=== PATIENT | female | born 1960 | race Two or more races ===

== ENCOUNTER 2018-04-19 21:53 | Emergency (ER) | payer SELFPAY ==
[~2018-04-19] VITALS: Ht 152.4 cm; Wt 71.7 kg
[2018-04-19 22:01] VITALS: BP 127/79
--- NOTE | 2018-04-19 22:24 | Emergency Room Report ---
History of Present Illness General Chief Complaint: Sore Throat Source: Patient Present Illness HPI Patient present with complaints of sore throat ongoing for the past 3 days Denies any chest pain or shortness of breath denies any back or flank pain Patient has increased pain with swallowing 6 out of 10 Also complains of low-grade fevers at home denies any posterior neck pain denies any photophobia Denies any vomiting or diarrhea denies any recent travel Allergies: Coded Allergies: No Known Allergies (Unverified , 04/19/18) Patient History Past Medical History: see triage record Pertinent Family History: none Now: No Reviewed Nursing Documentation: PMH: Agreed; PSxH: Agreed Nursing Documentation-PMH Past Medical History: No History, Except For Hx Hypertension: Yes Hx Diabetes: Yes - Pre-DM Review of Systems All Other Systems: negative except mentioned in HPI Physical Exam Vital Signs Date Time Temp Pulse Resp B/P (MAP) Pulse Ox O2 Delivery O2 Flow Rate FiO2 04/19/18 22:00 100.1 101 16 127/79 93 Room Air 100.0 Sp02 EP Interpretation: reviewed, normal General Appearance: well appearing, no apparent distress Head: normocephalic, atraumatic Eyes: bilateral eye PERRL, bilateral eye EOMI ENT: normal voice, uvula midline, pharyngeal erythema Neck: supple Respiratory: chest non-tender, lungs clear Cardiovascular #1: regular rate, rhythm Gastrointestinal: non tender, soft Musculoskeletal: normal inspection Neurologic: alert, oriented x3 Skin: normal color, no rash Lymphatic: no adenopathy Medical Decision Making Diagnostic Impression: Primary Impression: Pharyngitis ER Course Patient's findings and exam is consistent with pharyngitis likely bacterial Patient is provided with initial antibiotic here Patient does not appear septic or toxic And is otherwise stable for initial conservative outpatient trial Last Vital Signs Date Time Temp Pulse Resp B/P (MAP) Pulse Ox O2 Delivery O2 Flow Rate FiO2 04/19/18 22:01 100.0 101 16 127/79 93 Room Air 100.0 Status: improved Disposition: HOME, SELF-CARE Condition: Improved Scripts Prednisone* (PREDNISONE*) 20 Mg Tablet 20 MG ORAL BID, #6 TAB Prov: Manfred Marcos DO 04/19/18 Ibuprofen* (MOTRIN*) 600 Mg Tablet 600 MG ORAL THREE TIMES A DAY, #20 TAB 0 Refills Prov: CandicedoManfred mullins DO 04/19/18 Amoxicillin/Potassium Clav 875-125* (AUGMENTIN 875-125 TABLET*) 1 Each Tablet 1 TAB ORAL TWICE A DAY, #14 TAB Prov: Manfred Marcos DO 04/19/18 Additional Instructions: Patient is provided with the discharge instructions notified to follow up with primary doctor in the next 2-3 days otherwise return to the er with any worsening symptoms. Please note that this report is being documented using DRAGON technology. This can lead to erroneous entry secondary to incorrect interpretation by the dictating instrument. Manfred Marcos DO Apr 19, 2018 22:24
[2018-04-19] MEDS ORDERED: Augmentin 875mg Tab ORAL ONE (22:30)
[2018-04-19] MEDS ORDERED: PREDNISONE20 MG ORAL (22:50)
[2018-04-19] MEDS ORDERED: IBUPROFEN600 MG ORAL (22:50)
[2018-04-19] MEDS ORDERED: AUGMENTIN 875-1 EAC1 ORAL (22:50)
[2018-04-19 22:54] VITALS: BP 127/79
== END 2018-04-19 22:55 | disposition home or self-care (01) ==
LOC: EDBD 21:53 → EMR 22:36
DX: J02.9 Acute pharyngitis, unspecified (principal); I10 Essential (primary) hypertension; R73.03 Prediabetes
CPT/HCPCS: 99283; J7512